=== PATIENT | male | born 1985 | race African-American/Black ===

== ENCOUNTER 2021-04-02 04:27 | Emergency (ER) | payer MEDICAID ==
[~2021-04-02] VITALS: Ht 185.4 cm; Wt 81.6 kg
[2021-04-02 04:27] VITALS: BP 135/61
[2021-04-02] MEDS ORDERED: KETOROLAC TROMETH 60MG/2ML VIAL IM ONE (07:00)
[2021-04-02] MEDS ORDERED: CYCL-837 PO (07:03)
[2021-04-02] MEDS ORDERED: IBUP800T27 PO (07:03)
== END 2021-04-02 07:44 | disposition home or self-care (01) ==
LOC: ER 04:27
DX: S16.1XXA Strain of muscle, fascia and tendon at neck level, initial encounter (principal); X58.XXXA Exposure to other specified factors, initial encounter; Y93.89 Activity, other specified; Y92.89 Other specified places as the place of occurrence of the external cause; Y99.8 Other external cause status
CPT/HCPCS: 72040; 96372; 99283; J1885